=== PATIENT | female | born 1980 | race Caucasian/White ===

== ENCOUNTER 2017-03-13 21:01 | Emergency (ER) | payer BC ==
--- NOTE | 2017-04-17 15:38 | ER ---
ADMIT: 03/13/2017 RM/LOC: ER [facility] MR#: [id number] [address] [address] [address] [place] [address] Emergency Room Report SEX: F AGE: 36 : 1980 DATE: 03/13/2017 A 36-year-old comes with odd complaints of a bubble/pressure in the upper portion of her sternum. She says it is worse if she coughs or takes a deep breath. See T-sheet for history and physical. She has a history of Kuldip- Parkinson-White, and EKG showed changes of Ykycb-Kxdyykans-Auphq. Chest x-ray was unremarkable. Electrolytes were unremarkable. The patient is being discharged with atypical chest pain, instructed to follow up with Dr. Gastelum tomorrow and return if symptoms were to worsen yet tonight. She requested discharge at this time saying she felt well enough to go home. Jerod Stoner MD/ jnoo JOB #: [id number] CC: Saul Alvarado MD, Attending Physician
== END 2017-03-13 23:50 | disposition home or self-care (01) ==
LOC: ER 21:01
DX: R07.89 Other chest pain (principal); Z90.49 Acquired absence of other specified parts of digestive tract; Z90.89 Acquired absence of other organs